=== PATIENT | female | born 1950 | race Two or more races ===

== ENCOUNTER 2021-09-21 15:25 | Emergency (ER) | payer OTHER, MEDICAID ==
[~2021-09-21] VITALS: Ht 160 cm; Wt 77.1 kg
[2021-09-21 16:16] LABS: Basophils # (auto) 0.1 10 ^3/uL (0-0.2); Basophils % (auto) 0.7 % (0.0-2.0); Eosinophils # (auto) 0.1 10 ^3/uL (0-0.8); Eosinophils % (auto) 1.6 % (0.0-7.0); Hemoglobin 13.9 g/dL (12.2-16.2); Lymphocytes # (auto) 2.1 10 ^3/uL (0.4-5.4); Mean Corpuscular Hemoglobin 30.9 pg (28.0-32.0); Mean Corpuscular Hgb Conc. 33.9 g/dL (32.0-36.0); Mean Corpuscular Volume 91.2 fL (80.0-100.0); Monocytes # (auto) 0.5 10 ^3/uL (0-1.3); Monocytes % (auto) 5.9 % (0.0-12.0); Neutrophils # (auto) 5.3 10 ^3/uL (1.6-8.6); Neutrophils % (auto) 65.8 % (37.0-80.0); Nucleated Red Blood Cells % 0.1 %; Red Blood Cells 4.49 10^6/uL (4.0-5.20); Red Cell Distribution Width 12.7 % (11.8-14.3); White Blood Cell 8.1 10^3/uL (4.4-10.8)
[2021-09-21 16:34] LABS: Albumin 3.3 g/dL (3.4-5.0); Anion Gap 4 (5-15); Blood Urea Nitrogen 16 mg/dL (7-18); Calcium 9.2 mg/dL (8.5-10.1); Carbon Dioxide 31 mmol/L (21-32); Chloride 97 mmol/L (98-107); Glucose 135 mg/dL (74-106); Potassium 4.2 mmol/L (3.5-5.1); Sodium 132 mmol/L (136-145)
[2021-09-21 16:39] LABS: Alanine Aminotransferase 21 U/L (13-56); Alkaline Phosphatase 106 U/L (45-117); Aspartate Aminotransferase 15 U/L (15-37); BUN/Creatinine Ratio 16.7; Bilirubin, Total 0.3 mg/dL (0.2-1.0); GFR African American 73 mL/min; GFR Non-African American 61 mL/min; Total Protein 7.9 g/dL (6.4-8.2)
[2021-09-21] MEDS ORDERED: ASPirin 325 MG TAB PO ONE (22:15)
[2021-09-21] MEDS ORDERED: LORazepam 0.5 MG TAB PO ONE (22:15)
[2021-09-21 22:44] LABS: Urine Bacteria FEW /hpf (None Seen); Urine Blood TRACE /uL (Negative); Urine Specific Gravity 1.008 (1.001-1.035); Urine WBC 2 /hpf (0 - 5)
[2021-09-21 22:46] LABS: Magnesium 2.2 mg/dL (1.6-2.6)
[2021-09-21] MEDS ORDERED: NITR-87 PO (22:52)
[2021-09-21] MEDS ORDERED: LABETALOL HCL 5 MG/ML 4ML SYRINGE IV ONE (23:00)
[2021-09-22] VITALS: BP 151/64
== END 2021-09-22 00:38 | disposition home or self-care (01) ==
LOC: ER 15:25
DX: R51.9 Headache, unspecified (principal); F41.0 Panic disorder [episodic paroxysmal anxiety]; N39.0 Urinary tract infection, site not specified; I10 Essential (primary) hypertension; Z87.891 Personal history of nicotine dependence
CPT/HCPCS: 36415; 70450; 71045; 80053; 81001; 83735; 84484; 85025; 93005

== ENCOUNTER 2023-12-17 16:55 | Emergency (ER) | payer OTHER, MEDICAID ==
[~2023-12-17] VITALS: Ht 157.5 cm; Wt 78.1 kg
[~2023-12-17 16:55] MED LIST: NITR-87 PO
[2023-12-17 18:18] VITALS: PULSE 61; RESP 16; O2SAT 98
[2023-12-17 19:16] LABS: Basophils # (auto) 0.1 10 ^3/uL (0-0.2); Basophils % (auto) 0.8 % (0.0-2.0); Eosinophils # (auto) 0.2 10 ^3/uL (0-0.8); Eosinophils % (auto) 1.9 % (0.0-7.0); Hematocrit 37.3 % (36.0-46.0); Hemoglobin 12.8 g/dL (12.2-16.2); Lymphocytes # (auto) 2.5 10 ^3/uL (0.4-5.4); Lymphocytes % (auto) 27.4 % (10.0-50.0); Mean Corpuscular Hemoglobin 31.7 pg (28.0-32.0); Mean Corpuscular Hgb Conc. 34.2 g/dL (32.0-36.0); Mean Corpuscular Volume 92.5 fL (80.0-100.0); Monocytes # (auto) 0.6 10 ^3/uL (0-1.3); Monocytes % (auto) 6.6 % (0.0-12.0); Neutrophils # (auto) 5.8 10 ^3/uL (1.6-8.6); Neutrophils % (auto) 63.3 % (37.0-80.0); Nucleated Red Blood Cells % 0.1 %; Red Blood Cells 4.03 10^6/uL (4.0-5.20); Red Cell Distribution Width 12.6 % (11.8-14.3); White Blood Cell 9.2 10^3/uL (4.4-10.8)
[2023-12-17 19:26] LABS: Chloride 94 mmol/L (98-107); Potassium 3.6 mmol/L (3.5-5.1); Sodium 125 mmol/L (136-145)
[2023-12-17 19:27] LABS: Anion Gap 6 (5-15); Carbon Dioxide 25 mmol/L (20-30)
[2023-12-17 19:28] LABS: Calcium 10.1 mg/dL (8.7-10.4)
[2023-12-17 19:32] LABS: BUN/Creatinine Ratio 23.8 (10.0-20.0); Blood Urea Nitrogen 15 mg/dL (9-23); Glucose 93 mg/dL (74-106)
[2023-12-17 20:11] LABS: Urine Bacteria None Seen /hpf (None Seen); Urine WBC None Seen /hpf (0 - 5)
[2023-12-17 20:27] LABS: Urine Blood Negative /uL (Negative); Urine Clarity Clear (Clear); Urine Color Colorless (Yellow); Urine Protein, UAD Negative (Negative); Urine Specific Gravity 1.003 (1.001-1.035); Urine Urobilinogen Normal (Negative)
[2023-12-17 23:00] VITALS: BP 139/65; PULSE 66; RESP 17; TEMP 97.6; O2SAT 95
== END 2023-12-17 23:40 | disposition home or self-care (01) ==
LOC: ER 16:55
DX: I10 Essential (primary) hypertension (principal); R42 Dizziness and giddiness; E11.9 Type 2 diabetes mellitus without complications; E78.5 Hyperlipidemia, unspecified; Z90.49 Acquired absence of other specified parts of digestive tract
CPT/HCPCS: 36415; 70450; 80048; 81001; 82962; 84484; 85025; 93005

== ENCOUNTER 2024-05-05 01:03 | Inpatient (IN) | payer OTHER, MEDICAID ==
[2024-05-05] VITALS (7 sets, daily range): BP systolic 140–154; BP diastolic 60–76; PULSE 63–91; RESP 16–18; TEMP 97.4–97.8; O2SAT 91–99
[~2024-05-05] VITALS: Ht 149.9 cm; Wt 78.8 kg
--- NOTE | 2024-05-05 01:25 | ECG ---
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
--- NOTE | 2024-05-05 01:32 | ED.PDOC ---
History of Present Illness HPI Comments 74-year-old female who came to ER for headaches. Patient does have history of hypertension, diabetes, migraine headaches. States for the past few hours she has been having intermittent episodes of left-sided headaches, pressure, nonradiating, non provoked associated with photophobia and nausea. No meds take n. Blood pressure upon arrival was 214/103 mm Hg. 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 OPERATIONS MANAGER Hx Family History Family History: Reviewed,noncontributory to illness Social History Smoker: Non-Smoker Alcohol: Denies ETOH Use Drugs: Denies Drug Use Lives In: Home Constitutional: denies: chills, diaphoresis, fatigue, fever, malaise, sweats, weakness, others EENTM: denies: blurred vision, double vision, ear bleeding, ear discharge, ear drainage, ear pain, ear ringing, eye pain, eye redness, hearing loss, mouth pain, mouth swelling, nasal discharge, nose bleeding, nose congestion, nose pain, photophobia, tearing, throat pain, throat swelling, voice changes, others Respiratory: denies: cough, hemoptysis, orthopnea, SOB at rest, shortness of breath, SOB with excertion, stridor, wheezing, others Cardiovascular: denies: chest pain, dizzy spells, diaphoresis, Dyspnea on exertion, edema, irregular heart beat, left arm pain, lightheadedness, palpitations, PND, syncope, others Gastrointestinal: reports: nausea; denies: abdomen distended, abdominal pain, blood streaked bowels, constipated, diarrhea, dysphagia, difficulty swallowing, hematemesis, melena, poor appetite, poor fluid intake, rectal bleeding, rectal pain, vomiting, others Genitourinary: denies: abnormal vagina bleeding, burning, dyspareunia, dysuria, flank pain, frequency, hematuria, incontinence, pain, , vagina discharge, urgency, others Neurological: reports: headache; denies: dizziness, fainting, left sided numbness, left sided weakness, numbness, paresthesia, pre-existing deficit, right sided numbness, right sided weakness, seizure, speech problems, tingling, tremors, weakness, others Musculoskeletal: denies: back pain, gout, joint pain, joint swelling, muscle pain, muscle stiffness, neck pain, others Integumetry: denies: bruises, change in color, change in hair/nails, dryness, laceration, lesions, lumps, rash, wounds, others Allergic/Immunocompromised: denies: Difficulty Healing, Frequent Infections, Hives, Itching, others Hematologic/Lymphatic: denies: anemia, blood clots, easy bleeding, easy bruising, swollen glands, others Endocrine: denies: excessive hunger, excessive sweating, excessive thirst, excessive urination, flushing, intolerance to cold, intolerance to heat, unexplained weight gain, unexplained weight loss, others Psychiatric: denies: anxiety, bipolar disorder, depression, hopeless, panic disorder, schizophrenia, sleepless, suicidal, others Physical Exam General Appearance: No Apparent Distress, Normal HEENT: Normal ENT Inspection, Pharynx Normal, TMs Normal Neck: Full Range of Motion, Non-Tender, Normal, Normal Inspection Respiratory: Chest Non-Tender, Lungs Clear, No Accessory Muscle Use, No Respiratory Distress, Normal Breath Sounds Cardiovascular: No Edema, No JVD, No Murmur, No Gallop, Normal Peripheral Pulses, Regular Rate/Rhythm Breast Exam: Deferred Gastrointestinal: No Organomegaly, Non Tender, No Pulsatile Mass, Normal Bowel Sounds, Soft Genitalia: Deferred Pelvic: Deferred Rectal: Deferred Extremities: No calf tenderness, Normal capillary refill, Normal inspection, Normal range of motion, Non-tender, No pedal edema Musculoskeletal : Apperance: Normal Neurologic: Alert, child life specialist II-XII nml as Tested, No Motor Deficits, Normal Affect, Normal Mood, No Sensory Deficits Cerebellar Function: Normal Reflexes: Normal Skin: Dry, Normal Color, Warm Lymphatic: No Adenopathy Was a procedure done? Was a procedure done?: No Differential Dx Considerations may include: Anemia, electrolyte imbalance, migraine headaches, hypertensive urgency X-Ray, Labs, Meds, VS Vital Signs Date Time Temp Pulse Resp B/P (MAP) Pulse Ox O2 Delivery O2 Flow Rate FiO2 05/05/24 02:29 97.6 64 17 204/117 (146) 99 97.6 05/05/24 02:29 64 17 99 Room Air* 0 21 05/05/24 01:21 67 05/05/24 01:10 97.5 72 16 214/103 (140) 97 Lab Test 05/05/24 02:00 05/05/24 01:48 05/05/24 01:39 Range/Units Troponin I High Sensitivity < 3 L < 3 L </=34 ng/L Urine Color Straw Yellow Urine Clarity Clear Clear Urine pH 6.0 5.0-9.0 Urine Specific [place] 1.012 1.001-1.035 Urine Protein Negative Negative Urine Ketones Negative Negative Urine Blood Trace H Negative /uL Urine Nitrite Negative Negative Urine Bilirubin Negative Negative Urine Urobilinogen Normal Negative mg/dL Urine Leukocyte Esterase 1+ Negative /uL Urine RBC 3 0 - 4 /hpf Urine WBC 1 0 - 5 /hpf Urine Squamous Epithelial Cells Few <5 /hpf Urine Bacteria None seen None Seen /hpf Urine Glucose Normal Normal mg/dL White Blood Count 7.3 4.4-10.8 10^3/uL Red Blood Count 4.43 4.0-5.20 10^6/uL Hemoglobin 14.4 12.2-16.2 g/dL Hematocrit 41.6 36.0-46.0 % Mean Corpuscular Volume 93.8 80.0-100.0 fL Mean Corpuscular Hemoglobin 32.4 H 28.0-32.0 pg Mean Corpuscular Hemoglobin Concent 34.6 32.0-36.0 g/dL Red Cell Distribution Width 12.8 11.8-14.3 % Platelet Count 318 140-450 10^3/uL Mean Platelet Volume 7.3 6.9-10.8 fL Neutrophils (%) (Auto) 60.4 37.0-80.0 % Lymphocytes (%) (Auto) 31.0 10.0-50.0 % Monocytes (%) (Auto) 5.8 0.0-12.0 % Eosinophils (%) (Auto) 1.8 0.0-7.0 % Basophils (%) (Auto) 1.0 0.0-2.0 % Neutrophils # (Auto) 4.4 1.6-8.6 10 ^3/uL Lymphocytes # (Auto) 2.3 0.4-5.4 10 ^3/uL Monocytes # (Auto) 0.4 0-1.3 10 ^3/uL Eosinophils # (Auto) 0.1 0-0.8 10 ^3/uL Basophils # (Auto) 0.1 0-0.2 10 ^3/uL Nucleated Red Blood Cells 0.1 % Sodium Level 135 L 136-145 mmol/L Potassium Level 4.0 3.5-5.1 mmol/L Chloride Level 106 98-107 mmol/L Carbon Dioxide Level 26 20-31 mmol/L Anion Gap 3 L 5-15 Blood Urea Nitrogen 17 9-23 mg/dL Creatinine 0.76 0.550-1.02 mg/dL Glomerular Filtration Rate Calc 82 >90 mL/min BUN/Creatinine Ratio 22.4 H 10.0-20.0 Serum Glucose 143 H 74-106 mg/dL Calcium Level 10.5 H 8.7-10.4 mg/dL Current Medications Medications (Trade) Dose Ordered Sig/Nupur Route Start Time Stop Time Status Last Admin Acetaminophen (Tylenol Tablet) 650 mg ONCE ONCE PO 05/05/24 01:30 05/05/24 01:31 DC 05/05/24 01:56 Time of 1ST Reevaluation: 01:28 Reevaluation 1ST: Unchanged Patient Education/Counseling: Diagnosis, Treatment Family Education/Counseling: No Family Present Departure 1 Departure Time of Disposition: 03:00 (Patient presented with hypertension and symptoms concerning for hypertensive emergency. Patient is receiving iv blood pressure medications requiring intensive monitoring. Data: 1. I ordered and reviewed the result of at least 3 labs including a CBC, BMP, and Urinalysis. 2. I independently interpreted the following tests: CT Brain: Which appears benign. EKG which is Normal Sinus RhythmRisk:This patient has a high risk of morbidity due to further diagnostic testing or treatment and may suffer from an acute cardiac disorder. Workup reveals hypertensive emergency and patient should be admitted for further workup. and possible expert consultation. ) Impression: Primary Impression: Hypertensive urgency Additional Impression: Migraine Qualified Codes: G43.119 - Migraine with aura, intractable, without status migrainosus Disposition: ADMITTED INPATIENT Admit to: Med Surg Condition: Serious Critical Care Note Critical Care Time?: Yes (35 min-critical care time only) Critical care comment: Hypertensive urgency Authorized and Performed by: Rachell Carrion MD Total critical care time: Approximately 33 minutes Due to a high probability of clinically significant, life threatening deterioration, the patient required my highest level of preparedness to intervene emergently and I personally spent this critical care time directly and personally managing the patient. This critical care time included obtaining a history; examining the patient; pulse oximetry; ordering and review of studies; arranging urgent treatment with development of a management plan; evaluation of patient's response to treatment; frequent reassessment; and, discussions with other providers. This critical care time was performed to assess and manage the high probability of imminent, life-threatening deterioration that could result in multi-organ failure. It was exclusive of separately billable procedures and treating other patients and teaching time. Please see my other sections and the rest of the note for further information on patient assessment and treatment. Stability Stability form required: No Heart Score Heart Score: Heart Score Response (Comments) Value History Moderate Suspicious 1 EKG Normal 0 Age >65 2 Risk Factors >3 or Hx ASHD 2 Troponin Normal limit 0 Total 5 I personally scribed for RACHELL CARRION MD ([facility] on 05/05/24 at 01:32. Electronically submitted by Allen Shearer ([facility]). I personally scribed for RACHELL CARRION MD ([facility]) on 05/05/24 at 01:32. Electronically submitted by Allen Shearer ([employer]). I personally scribed for RACHELL CARRION MD ([facility]INA) on 05/05/24 at 01:48. Electronically submitted by Allen Shearer ([employer]). RACHELL CARRION MD May 05, 2024 01:32
[2024-05-05 01:49] LABS: Basophils # (auto) 0.1 10 ^3/uL (0-0.2); Eosinophils # (auto) 0.1 10 ^3/uL (0-0.8); Eosinophils % (auto) 1.8 % (0.0-7.0); Hematocrit 41.6 % (36.0-46.0); Hemoglobin 14.4 g/dL (12.2-16.2); Lymphocytes # (auto) 2.3 10 ^3/uL (0.4-5.4); Mean Corpuscular Hemoglobin 32.4 pg (28.0-32.0); Mean Corpuscular Hgb Conc. 34.6 g/dL (32.0-36.0); Mean Corpuscular Volume 93.8 fL (80.0-100.0); Monocytes # (auto) 0.4 10 ^3/uL (0-1.3); Monocytes % (auto) 5.8 % (0.0-12.0); Neutrophils # (auto) 4.4 10 ^3/uL (1.6-8.6); Neutrophils % (auto) 60.4 % (37.0-80.0); Nucleated Red Blood Cells % 0.1 %; Platelet Count (auto) 318 10^3/uL (140-450); Red Blood Cells 4.43 10^6/uL (4.0-5.20); Red Cell Distribution Width 12.8 % (11.8-14.3); White Blood Cell 7.3 10^3/uL (4.4-10.8)
[2024-05-05] MEDS: ACETAMINOPHEN 325 MG TAB PO ONE (01:56)
[2024-05-05 01:58] LABS: Chloride 106 mmol/L (98-107); Sodium 135 mmol/L (136-145)
[2024-05-05 01:59] LABS: Anion Gap 3 (5-15); Calcium 10.5 mg/dL (8.7-10.4); Carbon Dioxide 26 mmol/L (20-31)
[2024-05-05 02:04] LABS: BUN/Creatinine Ratio 22.4 (10.0-20.0); Blood Urea Nitrogen 17 mg/dL (9-23); Glucose 143 mg/dL (74-106)
[2024-05-05 02:06] LABS: Urine Bacteria None Seen /hpf (None Seen)
[2024-05-05 02:34] LABS: Urine Blood TRACE /uL (Negative); Urine Clarity Clear (Clear); Urine Protein, UAD Negative (Negative); Urine Specific Gravity 1.012 (1.001-1.035); Urine Urobilinogen Normal (Negative); Urine WBC 1 /hpf (0 - 5)
[2024-05-05 02:37] LABS: Urine Color STRAW (Yellow)
--- NOTE | 2024-05-05 02:42 | DVH ---
Examination: CXRP Clinical Indication: HTN urgency Comparison: None. Technique: Frontal radiograph of the chest was obtained. Findings: Patient is in slight rotation. Lungs are clear and well expanded with no pulmonary infiltrate or pleural effusion. There is no pneumothorax. The cardiomediastinal silhouette is within normal limits. No acute osseous abnormality is seen. Impression: No acute cardiopulmonary disease is seen. Electronically Signed 05/05/2024 02:33 Melissa Shell
--- NOTE | 2024-05-05 02:43 | DVH ---
Examination: HWOCT CLINICAL INDICATION: ;HTN urgency DIREAS;Reason for Exam: Wheelchair;Wheelchair;Modes of Transportation DITRANS;How is pat ient transported?. COMPARISON: None. CONTRAST USED: None. TECHNIQUE: The examination was performed obtaining 4 mm slices without contrast. CT scan was done ac cording to ALARA (As Low as Reasonably Achievable). Multiplanar reconstructions were obtained. This CT scan was performed using dose optimization techniques as appropriate to the performed exam includ ing one or more of the following: automated exposure control, adjustment of the kV and/or mA accordin g to patient size, use of iterative reconstruction technique. FINDINGS: SUPRATENTORIAL BRAIN: Cerebral Hemispheres: There is no midline shift or mass effect, intra or extra-axial fluid collectio ns or hemorrhage. Diffuse white matter hypodensity in the subcortical, deep, periventricular white matter of the cerebr um on either side with castorena radiata and centrum semiovale involvement, which although non-specific, likely relates to small vessel ischemic disease. Prominent sulcal - gyral pattern and cisternal spaces in both cerebral hemispheres suggestive of cere bral atrophy, likely age-related. Basal Ganglia: No abnormal areas of altered attenuation within the basal ganglia. POSTERIOR FOSSA: The brainstem is unremarkable. Prominent cerebellar folia suggestive of cerebellar atrophy, likely age-related. VENTRICULAR SYSTEM: The ventricular system is normal in size. There is no evidence of hydrocephalus or transependymal flow of cerebrospinal fluid. SKULL BASE AND PARASELLAR REGION: The skull base is normal with no parasellar masses or abnormalitie s identified. CALVARIUM AND SCALP REGION: No abnormality is seen. PARANASAL SINUSES: Partly visualized mucous retention cyst in the visualized right maxillary sinus. No significant inflammatory changes are identified in the visualized paranasal sinuses. IMPRESSION: 1. No evidence of acute large vessel territorial ischemic infarction or intraparenchymal hematoma in current study. 2. Chronic small vessel ischemic changes. 3. Cerebral and cerebellar atrophy, likely age-related. 4. Chronic and/or ancillary findings as described above. 5. Advised further evaluation with MRI brain without contrast if clinically indicated. Electronically Signed 05/05/2024 02:34 Melissa Shell
[2024-05-05] MEDS: METOCLOPRAMIDE HCL 5MG/ml INJ 2ml VIAL IV ONE (03:05)
[2024-05-05] MEDS: SODIUM CHLORIDE 0.9% 1,000 ML IV ONE (03:05)
[2024-05-05] MEDS: hydrALAZINE HCL 20 MG/ML VL IV ONE (03:07)
[2024-05-05] MEDS: KETOROLAC TROMETH 30 MG/ML 1ML VIAL IV ONE (04:12)
[2024-05-05] MEDS ORDERED: ONDANSETRON HCL 4 MG/2 ML VIAL IV PRN (10:15)
[2024-05-05] MEDS ORDERED: TEMAZEPAM 15 MG CAP PO PRN (10:15)
[2024-05-05] MEDS ORDERED: DOCUSATE SOD 100 MG CAP PO PRN (10:15)
[2024-05-05] MEDS ORDERED: LORazepam 0.5 MG TAB PO PRN (10:15)
[2024-05-05] MEDS ORDERED: MAALOX PLUS or MAALOX 30 ML PO PRN (10:15)
[2024-05-05] MEDS: PROPRANOLOL HCL 20 MG TAB PO SCH (10:46)
--- NOTE | 2024-05-05 11:08 | DVHHP2 ---
History of Present Illness Reason for Visit: Headaches History of Present Illness 74 yo female with acute headaches and weakness was having complaints of headaches for past day patient takes medications for blood pressure but appears to take them only as needed and came in with extreme hypertensive urgency currently patient headaches have improved but was recommended for evaluation and monitoring prior to discharge Cardiovascular: HTN RN SECURITY: Migraine Endocrine: Diabetes Review of Systems Constitutional: No: Fever, Chills, Sweats, Weakness, Malaise, Other Eyes: Vision change; No: Pain, Conjunctivae inflammation, Eyelid inflammation, Other, Redness ENT: No: Ear pain, Ear discharge, Nose pain, Nose discharge, Nose congestion, Mouth pain, Mouth swelling, Throat pain, Throat swelling, Other Respiratory: No: Cough, Dry, Shortness of breath, SOB with excertion, Wheezing, Hemoptysis, Pleuritic Pain, Sputum, Wheezing, Other Cardiovascular: No: Chest Pain, Palpitations, Orthopnea, Paroxysmal Noc. Dyspnea, Edema, Lt Headedness, Other Gastrointestinal: No: Nausea, Vomiting, Abdominal Pain, Diarrhea, Constipation, Melena, Hematochezia, Other Genitourinary: No Dysuria, No Frequency, No Incontinence, No Hematuria, No Retention, No Other Musculoskeletal: No: other, neck pain, shoulder pain, arm pain, back pain, hand pain, leg pain, foot pain Skin: No: Rash, Lesions, Jaundice, Bruising, Other Neurological: Other (migraines ); No: Weakness, Numbness, Incoordination, Change in speech, Confusion, Seizures Allergies: Coded Allergies: NO KNOWN ALLERGIES (Unverified , 01/30/15) Medications Current Medications Medications Dose Ordered Sig/Nupur Route Start Time Stop Time Status Last Admin Dose Admin Hydralazine HCl 25 mg Q8HR PO 05/05/24 14:00 Propranolol HCl 20 mg BID PO 05/05/24 10:15 Lorazepam 0.5 mg Q6HP PRN PO 05/05/24 10:15 Al Hydrox/Mg Hydrox/Simethicone 30 ml Q6HP PRN PO 05/05/24 10:15 Docusate Sodium 100 mg BIDPRN PRN PO 05/05/24 10:15 Acetaminophen 650 mg Q6HP PRN PO 05/05/24 10:15 Temazepam 15 mg QHSP PRN PO 05/05/24 10:15 Ondansetron HCl 4 mg Q4HP PRN IV 05/05/24 10:15 Exam Vital Signs Vital Signs Date Time Temp Pulse Resp B/P (MAP) Pulse Ox O2 Delivery O2 Flow Rate FiO2 05/05/24 10:46 108/46 05/05/24 09:11 85 16 95 Room Air* 0 21 05/05/24 09:00 98.3 98.3 General Appearance: Alert, Oriented X3 HEENT: Atraumatic, PERRLA Respiratory: Clear to auscultation, Normal air movement Cardiovascular: Regular rate, Normal S1, Normal S2 Abdominal: Normal bowel sounds, Soft Extremities: No clubbing, No cyanosis Skin: No rashes, No breakdown Neuro: Normal gait, Normal speech Labs/Xrays Labs Test 05/05/24 02:00 05/05/24 01:48 05/05/24 01:39 Range/Units Troponin I High Sensitivity < 3 L </=34 ng/L Urine Color Straw Yellow Urine Clarity Clear Clear Urine pH 6.0 5.0-9.0 Urine Specific [place] 1.012 1.001-1.035 Urine Protein Negative Negative Urine Ketones Negative Negative Urine Blood Trace H Negative /uL Urine Nitrite Negative Negative Urine Bilirubin Negative Negative Urine Urobilinogen Normal Negative mg/dL Urine Leukocyte Esterase 1+ Negative /uL Urine RBC 3 0 - 4 /hpf Urine WBC 1 0 - 5 /hpf Urine Squamous Epithelial Cells Few <5 /hpf Urine Bacteria None seen None Seen /hpf Urine Glucose Normal Normal mg/dL White Blood Count 7.3 4.4-10.8 10^3/uL Red Blood Count 4.43 4.0-5.20 10^6/uL Hemoglobin 14.4 12.2-16.2 g/dL Hematocrit 41.6 36.0-46.0 % Mean Corpuscular Volume 93.8 80.0-100.0 fL Mean Corpuscular Hemoglobin 32.4 H 28.0-32.0 pg Mean Corpuscular Hemoglobin Concent 34.6 32.0-36.0 g/dL Red Cell Distribution Width 12.8 11.8-14.3 % Platelet Count 318 140-450 10^3/uL Mean Platelet Volume 7.3 6.9-10.8 fL Neutrophils (%) (Auto) 60.4 37.0-80.0 % Lymphocytes (%) (Auto) 31.0 10.0-50.0 % Monocytes (%) (Auto) 5.8 0.0-12.0 % Eosinophils (%) (Auto) 1.8 0.0-7.0 % Basophils (%) (Auto) 1.0 0.0-2.0 % Neutrophils # (Auto) 4.4 1.6-8.6 10 ^3/uL Lymphocytes # (Auto) 2.3 0.4-5.4 10 ^3/uL Monocytes # (Auto) 0.4 0-1.3 10 ^3/uL Eosinophils # (Auto) 0.1 0-0.8 10 ^3/uL Basophils # (Auto) 0.1 0-0.2 10 ^3/uL Nucleated Red Blood Cells 0.1 % Sodium Level 135 L 136-145 mmol/L Potassium Level 4.0 3.5-5.1 mmol/L Chloride Level 106 98-107 mmol/L Carbon Dioxide Level 26 20-31 mmol/L Anion Gap 3 L 5-15 Blood Urea Nitrogen 17 9-23 mg/dL Creatinine 0.76 0.550-1.02 mg/dL Glomerular Filtration Rate Calc 82 >90 mL/min BUN/Creatinine Ratio 22.4 H 10.0-20.0 Serum Glucose 143 H 74-106 mg/dL Calcium Level 10.5 H 8.7-10.4 mg/dL Assessment/Plan Assessment/Plan Admit Med/surge Migraines Headaches in setting Hypertensive urgency PRN blood pressure meds in patient propranolol prn meds for pain headache relieved monitoring for continued rebound hypertensive urgency CT scan no acute signs of stroke or bleeds chronic changes noted DM c/w home meds sliding scale as required Plan discussed with: Patient My Orders Orders - MAHIN CARTER MD Procedure Category Date Status Time Hydralazine Hcl PHA 05/05/24 In Process Tablet (Apresoline 14:00 Propranolol Hcl PHA 05/05/24 In Process Tablet (Inderal 10:15 Admit ADMIT 05/05/24 Transmitted 10:02 Code Status CODE 05/05/24 Transmitted 10:02 Vital Signs AASHISH 05/05/24 In Process 10:02 Review Orders With AASHISH 05/05/24 In Process Adm. 10:02 Regular Diet DIET 05/05/24 Transmitted Lunch Lorazepam Tablet PHA 05/05/24 In Process (Ativan Tablet) 10:15 Alum & Mag PHA 05/05/24 In Process Hydrox-Simethicone 10:15 Docusate Sodium PHA 05/05/24 In Process Capsule (Colace 10:15 Acetaminophen Tablet PHA 05/05/24 In Process (Tylenol Tablet) 10:15 Temazepam (Restoril) PHA 05/05/24 In Process 10:15 Notify Md Of Changes [facility] 05/05/24 In Process From Base 10:02 Advance Directive [facility] 05/05/24 In Process 10:02 Basic Metabolic Panel LAB 05/06/24 Verified 04:00 Complete Blood Count LAB 05/06/24 Verified 04:00 Patient Condition ORDERS 05/05/24 Transmitted 10:02 Allergies [facility] 05/05/24 In Process 10:[address] [facility] 05/05/24 In Process (Zofran) 10:15 Notify Md Of Changes [facility] 05/05/24 In Process From Base 10:02 Therapy Assistant For [facility] 05/05/24 In Process 24 Hours 10:02 Emergency Dysrhythmia [facility] 05/05/24 In Process Protocol 10:02 Rhythm Strips Once [facility] 05/05/24 In Process Every Shift 10:02 Oxygen By Nasal RT 05/05/24 Transmitted Cannula 10:02 Problem List: (1) Vomiting (2) Headache (3) Migraine (4) Hypertensive urgency (5) Poorly-controlled hypertension (6) Dizziness Date of Service: May 05, 2024 Billing Provider: MAHIN CARTER MD Common Visit Codes: [id number] INP/OBS CARE (HIGH) MAHIN CARTER MD May 05, 2024 11:08
[2024-05-05] MEDS: hydrALAZINE HCL 25 MG TAB PO SCH (14:15)
[2024-05-05] MEDS: ACETAMINOPHEN 325 MG TAB PO PRN (21:51)
[2024-05-06 01:00] VITALS: BP 129/46; PULSE 53; RESP 17; TEMP 97.1; O2SAT 97
[2024-05-06 05:00] VITALS: BP 117/55; PULSE 52; RESP 18; TEMP 97.2; O2SAT 96
[2024-05-06 06:16] LABS: Basophils # (auto) 0.1 10 ^3/uL (0-0.2); Basophils % (auto) 0.8 % (0.0-2.0); Eosinophils # (auto) 0.1 10 ^3/uL (0-0.8); Eosinophils % (auto) 1.7 % (0.0-7.0); Hematocrit 39.3 % (36.0-46.0); Hemoglobin 13.2 g/dL (12.2-16.2); Lymphocytes # (auto) 2.3 10 ^3/uL (0.4-5.4); Lymphocytes % (auto) 34.2 % (10.0-50.0); Mean Corpuscular Hemoglobin 31.8 pg (28.0-32.0); Mean Corpuscular Hgb Conc. 33.6 g/dL (32.0-36.0); Mean Corpuscular Volume 94.8 fL (80.0-100.0); Monocytes # (auto) 0.6 10 ^3/uL (0-1.3); Monocytes % (auto) 8.1 % (0.0-12.0); Neutrophils # (auto) 3.8 10 ^3/uL (1.6-8.6); Neutrophils % (auto) 55.2 % (37.0-80.0); Nucleated Red Blood Cells % 0.1 %; Platelet Count (auto) 315 10^3/uL (140-450); Red Blood Cells 4.15 10^6/uL (4.0-5.20); Red Cell Distribution Width 12.7 % (11.8-14.3); White Blood Cell 6.8 10^3/uL (4.4-10.8)
[2024-05-06 06:32] LABS: Anion Gap 7 (5-15); Carbon Dioxide 24 mmol/L (20-31); Chloride 110 mmol/L (98-107); Potassium 4.5 mmol/L (3.5-5.1); Sodium 141 mmol/L (136-145)
[2024-05-06 06:33] LABS: Calcium 9.5 mg/dL (8.7-10.4)
[2024-05-06 06:37] LABS: Glucose 106 mg/dL (74-106)
[2024-05-06 06:38] LABS: BUN/Creatinine Ratio 16.9 (10.0-20.0); Blood Urea Nitrogen 13 mg/dL (9-23)
[2024-05-06 08:00] VITALS: BP 128/63; PULSE 111; PULSE 53; RESP 18; TEMP 97.2; O2SAT 96
[2024-05-06] MEDS ORDERED: LOSA-534 PO (09:46)
--- NOTE | 2024-05-06 09:46 | DVHDS2 ---
Discharge Summary Date of Admission May 05, 2024 at 10:02 Date of Discharge: May 06, 2024 Admitting Diagnosis Hypertensive crisis Labs/Diagnostic Data: Laboratory Results Test 05/06/24 04:48 05/05/24 02:00 05/05/24 01:48 White Blood Count 6.8 10^3/uL (4.4-10.8) Red Blood Count 4.15 10^6/uL (4.0-5.20) Hemoglobin 13.2 g/dL (12.2-16.2) Hematocrit 39.3 % (36.0-46.0) Mean Corpuscular Volume 94.8 fL (80.0-100.0) Mean Corpuscular Hemoglobin 31.8 pg (28.0-32.0) Mean Corpuscular Hemoglobin Concent 33.6 g/dL (32.0-36.0) Red Cell Distribution Width 12.7 % (11.8-14.3) Platelet Count 315 10^3/uL (140-450) Mean Platelet Volume 7.8 fL (6.9-10.8) Neutrophils (%) (Auto) 55.2 % (37.0-80.0) Lymphocytes (%) (Auto) 34.2 % (10.0-50.0) Monocytes (%) (Auto) 8.1 % (0.0-12.0) Eosinophils (%) (Auto) 1.7 % (0.0-7.0) Basophils (%) (Auto) 0.8 % (0.0-2.0) Neutrophils # (Auto) 3.8 10 ^3/uL (1.6-8.6) Lymphocytes # (Auto) 2.3 10 ^3/uL (0.4-5.4) Monocytes # (Auto) 0.6 10 ^3/uL (0-1.3) Eosinophils # (Auto) 0.1 10 ^3/uL (0-0.8) Basophils # (Auto) 0.1 10 ^3/uL (0-0.2) Nucleated Red Blood Cells 0.1 % Sodium Level 141 mmol/L (136-145) Potassium Level 4.5 mmol/L (3.5-5.1) Chloride Level 110 mmol/L (98-107) Carbon Dioxide Level 24 mmol/L (20-31) Anion Gap 7 (5-15) Blood Urea Nitrogen 13 mg/dL (9-23) Creatinine 0.77 mg/dL (0.550-1.02) Glomerular Filtration Rate Calc 80 mL/min (>90) BUN/Creatinine Ratio 16.9 (10.0-20.0) Serum Glucose 106 mg/dL (74-106) Calcium Level 9.5 mg/dL (8.7-10.4) Troponin I High Sensitivity < 3 ng/L (</=34) Urine Color Straw (Yellow) Urine Clarity Clear (Clear) Urine pH 6.0 (5.0-9.0) Urine Specific [place] 1.012 (1.001-1.035) Urine Protein Negative (Negative) Urine Ketones Negative (Negative) Urine Blood Trace /uL (Negative) Urine Nitrite Negative (Negative) Urine Bilirubin Negative (Negative) Urine Urobilinogen Normal mg/dL (Negative) Urine Leukocyte Esterase 1+ /uL (Negative) Urine RBC 3 /hpf (0 - 4) Urine WBC 1 /hpf (0 - 5) Urine Squamous Epithelial Cells Few /hpf (<5) Urine Bacteria None seen /hpf (None Seen) Urine Glucose Normal mg/dL (Normal) Other Laboratory Tests 05/06/24 04:48 Brief Hx & Hospital Course: History of Present Illness 74 yo female with acute headaches and weakness was having complaints of headaches for past day patient takes medications for blood pressure but appears to take them only as needed and came in with extreme hypertensive urgency currently patient headaches have improved but was recommended for evaluation and monitoring prior to discharge. Course of hospitalization: Patient was started on propranolol and hydralazine p.o. , which relieved the patient's hypertension as well as her headache. Patient has been asymptomatic overnight. Patient's blood pressure has been improved. Patient is requesting to be discharged home. She was instructed to follow up with her PCP in 1-2 weeks. She will continue with all previous home medications, in addition to increasing her losartan 50 mg p.o. daily. Physical exam General: Alert and Oriented x3. No acute distress. Well-nourished. Eyes: EOMI. Anicteric. HENT: Moist mucous membranes. Lungs: Clear to auscultation bilaterally. No accessory muscle use. Cardiovascular: Regular rate and rhythm. No murmur. No JVD. Abdomen: Soft, non-tender and non-distended. No palpable masses. Extremities: No edema. Non-tender. Skin: No rashes or lesions. Warm. Neurologic: No focal neurological deficits. CN II-XII grossly intact, but not individually tested. Psychiatric: Cooperative. Appropriate mood and affect. Total time spent with patient discussing and formulating plan of care: 35 minutes. This medical document was created using an electronic medical record system with [employer] dictation system. Although this document has been carefully reviewed, there may still be some phonetic and typographical errors. These areas are purely typographical due to imperfections of the software programs, and do not reflect any compromise in the patient's medical care. Condition at Discharge: Fair Final Diagnosis/Problems List Hypertensive crisis Secondary Diagnosis: Migraine headache Diabetes mellitus Obesity Discharge Disposition: Home Discharge Instruct/Medications Diet: Cardiac 2g Na,low cholest Activity: No Restrictions, As Tolerated Follow Up/Referral: Follow up PCP in 1-2 weeks Medications: Increase losartan to 50 mg p.o. daily 36 Discharge Statement: "Patient was advised to return to the ER or call 911 if any headaches, dizziness, shortness of breath, chest pain, abdominal pain, bleeding, fevers, or worsening of medical condition. Patient was counseled about treatment plan, medications, possible side effects, patientverbalized understanding. All questions were answered to the best of my ability. This discharge took greater then 30 minutes in planning, reviewing documentation, counseling the patient, and discussing with other team members." ASSESSMENT ASSESSMENT Assessment Hypertensive crisis Date of Service: May 06, 2024 Billing Provider: STEVE COLLINS NP Common Visit Codes: 74188-NPC/OBS DISCH DAY >30min STEVE COLLINS NP May 06, 2024 09:45
[2024-05-06] MEDS ORDERED: LOS25T PO (09:50)
[2024-05-06] MEDS: LOSARTAN POTASSIUM 25 MG TAB PO SCH (09:55)
== END 2024-05-06 11:30 | disposition home or self-care (01) | DRG 103 ==
LOC: EDUNIT# 01:03 → ER 01:03 → TELE 10:02 → TELE-CENTR 14:45
PROVIDERS: ADMIT Hospitalist; ATTEND Nurse Practitioner Acute Care
DX: G43.909 Migraine, unspecified, not intractable, without status migrainosus (principal); I16.0 Hypertensive urgency; E66.9 Obesity, unspecified; E11.9 Type 2 diabetes mellitus without complications; Z90.49 Acquired absence of other specified parts of digestive tract; Z79.899 Other long term (current) drug therapy; Z68.34 Body mass index [BMI] 34.0-34.9, adult
CPT/HCPCS: 36415; 70450; 71045; 80048; 81001; 83036; 84484; 85025; 93005; 99291; G0378; J1885

== ENCOUNTER 2025-06-07 10:06 | Emergency (ER) | payer OTHER, MEDICAID ==
[~2025-06-07] VITALS: Ht 154.9 cm; Wt 76.1 kg
[~2025-06-07 10:06] MED LIST changes: +LOS25T PO; +LOSA-534 PO; -NITR-87 PO
--- NOTE | 2025-06-07 11:16 | ED.PDOC ---
Back pain HPI HPI Comments 75 y.o female presents to the ED for a chief complaint of right lower rib associated with dizziness and a cough x 2 weeks. Patient reports pain is dull, always constant but states when moving her right arm, pain worsens and radiates to her back. Patient denies any recent falls, trauma, fever, chills, vomiting. Chief Complaint: Abdominal Pain Time Seen by MD: 10:56 Primary Care Provider: unknown Reviewed Notes: Nurses Notes, Medications, Allergies Allergies: Coded Allergies: NO KNOWN ALLERGIES (Unverified , 01/30/15) Home Meds Active Scripts Losartan Potassium (Losartan Potassium) 50 Mg Tab, 1 TAB PO DAILY, #30 TAB 2 Refills Prov:STEVE COLLINS [employer] MACHINIST 05/06/24 Reported Medications Losartan Potassium (Losartan Potassium) 25 Mg Tab, 1 TAB PO DAILY 05/06/24 Information Source: Patient Mode of Arrival: Ambulatory Timing: Weeks (2) Duration: Since onset Location of Back pain: (B) Lumbar Severity: Moderate Quality: Aching, Sharp Onset: Spontaneous Past Medical History PAST MEDICAL HISTORY: DM, HTN 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, 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 Hx Family History Family History: Reviewed,noncontributory to illness Social History Smoker: Non-Smoker Alcohol: Denies ETOH Use Drugs: Denies Drug Use Lives In: Home Constitutional: denies: chills, diaphoresis, fatigue, fever, malaise, sweats, weakness, others EENTM: denies: blurred vision, double vision, ear bleeding, ear discharge, ear drainage, ear pain, ear ringing, eye pain, eye redness, hearing loss, mouth pain, mouth swelling, nasal discharge, nose bleeding, nose congestion, nose pain, photophobia, tearing, throat pain, throat swelling, voice changes, others Respiratory: reports: cough; denies: hemoptysis, orthopnea, SOB at rest, shortness of breath, SOB with excertion, stridor, wheezing, others Cardiovascular: denies: chest pain, dizzy spells, diaphoresis, Dyspnea on exertion, edema, irregular heart beat, left arm pain, lightheadedness, palpitations, PND, syncope, others Gastrointestinal: denies: abdomen distended, abdominal pain, blood streaked bowels, constipated, diarrhea, dysphagia, difficulty swallowing, hematemesis, melena, nausea, poor appetite, poor fluid intake, rectal bleeding, rectal pain, vomiting, others Genitourinary: denies: abnormal vagina bleeding, burning, dyspareunia, dysuria, flank pain, frequency, hematuria, incontinence, pain, , vagina discharge, urgency, others Neurological: reports: dizziness; denies: fainting, headache, left sided numbness, left sided weakness, numbness, paresthesia, pre-existing deficit, right sided numbness, right sided weakness, seizure, speech problems, tingling, tremors, weakness, others Musculoskeletal: reports: others (right rib pain ); denies: back pain, gout, joint pain, joint swelling, muscle pain, muscle stiffness, neck pain Integumetry: denies: bruises, change in color, change in hair/nails, dryness, laceration, lesions, lumps, rash, wounds, others Allergic/Immunocompromised: denies: Difficulty Healing, Frequent Infections, Hives, Itching, others Hematologic/Lymphatic: denies: anemia, blood clots, easy bleeding, easy bruising, swollen glands, others Endocrine: denies: excessive hunger, excessive sweating, excessive thirst, excessive urination, flushing, intolerance to cold, intolerance to heat, unexplained weight gain, unexplained weight loss, others Psychiatric: denies: anxiety, bipolar disorder, depression, hopeless, panic disorder, schizophrenia, sleepless, suicidal, others All Other Systems: Reviewed and Negative Physical Exam General Appearance: No Apparent Distress, Normal HEENT: Normal ENT Inspection, Pharynx Normal, TMs Normal Neck: Full Range of Motion, Non-Tender, Normal, Normal Inspection Respiratory: Chest Non-Tender, Lungs Clear, No Accessory Muscle Use, No Respiratory Distress, Normal Breath Sounds Cardiovascular: No Edema, No JVD, No Murmur, No Gallop, Normal Peripheral Pulses, Regular Rate/Rhythm Breast Exam: Deferred Gastrointestinal: No Organomegaly, Non Tender, No Pulsatile Mass, Normal Bowel Sounds, Soft Genitalia: Deferred Pelvic: Deferred Rectal: Deferred Extremities: No calf tenderness, Normal capillary refill, Normal inspection, Normal range of motion, Non-tender, No pedal edema Musculoskeletal : Apperance: Normal Neurologic: Alert, 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 Was a procedure done?: No Back Pain Differential Dx Differential Diagnosis: DJD, Fracture, Musculoskeletal Pain, Pancreatits, Pyelonephritis, Strain X-Ray, Labs, Meds, VS Vital Signs Date Time Temp Pulse Resp B/P (MAP) Pulse Ox O2 Delivery O2 Flow Rate FiO2 06/07/25 11:59 97.4 65 16 146/80 (102) 99 97.4 06/07/25 10:32 67 06/07/25 10:24 97.9 96 68 144/82 17 97.9 Lab Test 06/07/25 12:38 06/07/25 11:33 Range/Units Troponin I High Sensitivity 3 L 3 L </=34 ng/L White Blood Count 8.1 4.4-10.8 10^3/uL Red Blood Count 4.62 4.0-5.20 10^6/uL Hemoglobin 14.4 12.2-16.2 g/dL Hematocrit 42.5 36.0-46.0 % Mean Corpuscular Volume 92.0 80.0-100.0 fL Mean Corpuscular Hemoglobin 31.1 28.0-32.0 pg Mean Corpuscular Hemoglobin Concent 33.8 32.0-36.0 g/dL Red Cell Distribution Width 12.7 11.8-14.3 % Platelet Count 347 140-450 10^3/uL Mean Platelet Volume 7.4 6.9-10.8 fL Neutrophils (%) (Auto) 67.9 37.0-80.0 % Lymphocytes (%) (Auto) 25.0 10.0-50.0 % Monocytes (%) (Auto) 5.5 0.0-12.0 % Eosinophils (%) (Auto) 1.0 0.0-7.0 % Basophils (%) (Auto) 0.6 0.0-2.0 % Neutrophils # (Auto) 5.5 1.6-8.6 10 ^3/uL Lymphocytes # (Auto) 2.0 0.4-5.4 10 ^3/uL Monocytes # (Auto) 0.4 0-1.3 10 ^3/uL Eosinophils # (Auto) 0.1 0-0.8 10 ^3/uL Basophils # (Auto) 0.1 0-0.2 10 ^3/uL Nucleated Red Blood Cells 0.2 % Sodium Level 133 L 136-145 mmol/L Potassium Level 4.2 3.5-5.1 mmol/L Chloride Level 101 98-107 mmol/L Carbon Dioxide Level 24 20-31 mmol/L Anion Gap 8 5-15 Blood Urea Nitrogen 14 9-23 mg/dL Creatinine 0.69 0.550-1.02 mg/dL Glomerular Filtration Rate Calc 90 >90 mL/min BUN/Creatinine Ratio 20.3 H 10.0-20.0 Serum Glucose 114 H 74-106 mg/dL Calcium Level 9.8 8.7-10.4 mg/dL Total Bilirubin 0.4 0.2-1.0 mg/dL Aspartate Amino Transferase (AST) 16 13-40 U/L Alanine Aminotransferase (ALT) 14 7-40 U/L Alkaline Phosphatase 91 46-116 U/L Total Protein 7.7 5.7-8.2 g/dL Albumin 4.4 3.2-4.8 g/dL Lipase 40 12-53 U/L Current Medications Medications (Trade) Dose Ordered Sig/Nupur Route Start Time Stop Time Status Last Admin Acetaminophen/ Hydrocodone Bitart ([place] 5/325MG Tab) 1 tab ONCE ONCE PO 06/07/25 11:15 06/07/25 11:16 DC 06/07/25 11:28 [place] [address] Ph: [phone] DIAGNOSTIC IMAGING Diagnostic Imaging Report : [id number] Signed PATIENT: ANIA HAMEED ACCT: [id number] UNIT: [id number] : 1950 LOC: ER ROOM / BED: / AGE / SEX: 75 / F ADM STATUS: REG ER SERVICE 1222 ORDERING PHYSICIAN: RACHELL MARIE MD PROCEDURE(s): ABPLIV - CT AB PEL WITH IV CON ONLY REASON: abdominal pain ORDER NUMBER(s): [id number], ACCESSION NUMBER(s): [id number] EXAM: CT CT AB PEL WITH IV CON ONLY History: abdominal pain Comparison Study: None TECHNIQUE: Multidetector CT of the abdomen pelvis with IV contrast. Axial, coronal and sagittal multiplanar reformats were obtained from the axial data set by the technologist. Radiation Dose Information: CT Dose: CTDI volume is 14.11 mGy. Dose-length product is 779.74 mGy*cm FINDINGS: Bibasilar atelectasis. 1 mm right middle lobe solid nodule overlying the fissure which may represent a fissural node Partially visualized heart is unremarkable. Liver, spleen, pancreas and right adrenal gland are unremarkable. 2.4 x 2.1 cm left adrenal mass measuring up to 90 Hounsfield units. Right renal scarring. Otherwise, kidneys, ureters and urinary bladder unremarkable. Uterus and adnexa unremarkable. Stomach is unremarkable. Small bowel loops unremarkable. Status post appendectomy. Moderate to large amount of fecal material within the colon. Sigmoid diverticulosis without diverticulitis. No evidence of intraperitoneal free air or free fluid. No evidence of aortic aneurysm or dissection. [id number] atherosclerotic calcification of the aorta and bilateral iliacs. No significant lymphadenopathy. Soft tissues are unremarkable. No evidence of acute osseous abnormalities. Calcified injection granuloma of the right gluteal region subcutaneous fat. IMPRESSION: No evidence of Acute abdominopelvic abnormalities. 2.3 x 2.1 cm left adrenal mass. Moderate to large amount of fecal material within the colon. ATED BY: RACHELLE COBURN DO DICTATED DATE/TIME: 06/07/251400 SIGNED BY: RACHELLE COBURN DO SIGNED DATE/TIME: 06/07/251400 CC: Time of 1ST Reevaluation: 11:15 Reevaluation 1ST: Unchanged Patient Education/Counseling: Diagnosis, Treatment, Prognosis Family Education/Counseling: No Family Present SEPSIS Sepsis Screen Date sepsis recognized/suspect: Jun 07, 2025 Time Sepsis recognized/suspect: 1026 Recent Procedure: No On Antibiotic Therapy: No Respiratory Rate >20: No Heart Rate >90: No Temp<36 C (96.8 F) or >38.3 C: No SBP <90 or MAP <65 mmHG: No New Acute Mental Status Change: No Is the patient on CPAP, BIPAP,: No Physician Orders Electrocardigram (06/07/25 10:28) Urinalysis (06/07/25 11:03) Chest Portable (06/07/25 11:03) Electrocardigram (06/07/25 12:03) Electrocardigram (06/07/25 14:03) Ct Ab Pel With Iv Con Only (06/07/25 12:22) Vital Signs Date Time Temp Pulse Resp B/P (MAP) Pulse Ox O2 Delivery O2 Flow Rate FiO2 06/07/25 11:59 97.4 65 16 146/80 (102) 99 97.4 06/07/25 10:32 67 06/07/25 10:24 97.9 96 68 144/82 17 97.9 Laboratory Tests Test 06/07/25 11:33 White Blood Count 8.1 10^3/uL (4.4-10.8) Medications Medications Dose Ordered Sig/Nupur Route Start Time Stop Time Status Last Admin Dose Admin Acetaminophen/ Hydrocodone Bitart 1 tab ONCE ONCE PO 06/07/25 11:15 06/07/25 11:16 DC 06/07/25 11:28 Departure 1 Departure Time of Disposition: 14:49 Impression: Primary Impression: Adrenal mass Additional Impressions: Constipation Pulmonary nodule Disposition: 01 HOME / SELF CARE / HOMELESS Condition: Stable Additional Instructions: Additional instructions: Please read all instructions provided in this packet carefully. You MUST follow-up with your primary care/family doctor in 1 to 2 days. If you are unable to see your primary care/family doctor, please return to our emergency room for re-assessment and re-evaluation in 1 to 2 days. Return to the emergency room here in our facility or to the nearest ER [facility] if your symptoms change or worsen. CONSULTATIONS: you MUST Follow-up for consultation as soon as possible with: -gastroenterology in 1-2 days. Please call for appointment. You MUST call the consultants office yourself to make an appointment. You may need to arrange that through your insurance and/or your primary/family doctor. If you are unable to see the reimbursement consultant in 1 to 2 days, you must return to our emergency room (or any other ER of your choice) for re-assessment and re-evalu ation. Adequate fluid hydration. Although you have been discharged from the Emergency Department, this does not mean that you have a "clean bill of health". No definitive diagnosis for your symptoms has been made today. It is possible that you are in the process of developing a serious illness. This is why you must return to the ED without fail if any new or worsening symptoms develop. Below is a copy of your radiological report for follow up: [facility] [id number] [place] [address] Ph: [phone] DIAGNOSTIC IMAGING Diagnostic Imaging Report : [id number] Signed PATIENT: ANIA HAMEED ACCT: [id number] UNIT: [id number] : 1950 LOC: ER ROOM / BED: / AGE / SEX: 75 / F ADM STATUS: REG ER SERVICE 1222 ORDERING PHYSICIAN: RACHELL MARIE MD PROCEDURE(s): ABPLIV - CT AB PEL WITH IV CON ONLY REASON: abdominal pain ORDER NUMBER(s): [id number], ACCESSION NUMBER(s): [id number] EXAM: CT CT AB PEL WITH IV CON ONLY History: abdominal pain Comparison Study: None TECHNIQUE: Multidetector CT of the abdomen pelvis with IV contrast. Axial, coronal and sagittal multiplanar reformats were obtained from the axial data set by the technologist. Radiation Dose Information: CT Dose: CTDI volume is 14.11 mGy. Dose-length product is 779.74 mGy*cm FINDINGS: Bibasilar atelectasis. 1 mm right middle lobe solid nodule overlying the fissure which may represent a fissural node Partially visualized heart is unremarkable. Liver, spleen, pancreas and right adrenal gland are unremarkable. 2.4 x 2.1 cm left adrenal mass measuring up to 90 Hounsfield units. Right renal scarring. Otherwise, kidneys, ureters and urinary bladder unremarkable. Uterus and adnexa unremarkable. Stomach is unremarkable. Small bowel loops unremarkable. Status post appendectomy. Moderate to large amount of fecal material within the colon. Sigmoid diverticulosis without diverticulitis. No evidence of intraperitoneal free air or free fluid. No evidence of aortic aneurysm or dissection. [id number] atherosclerotic calcification of the aorta and bilateral iliacs. No significant lymphadenopathy. Soft tissues are unremarkable. No evidence of acute osseous abnormalities. Calcified injection granuloma of the right gluteal region subcutaneous fat. IMPRESSION: No evidence of Acute abdominopelvic abnormalities. 2.3 x 2.1 cm left adrenal mass. Moderate to large amount of fecal material within the colon. ATED BY: RACHELLE COBURN DO DICTATED DATE/TIME: 06/07/25 140 SIGNED BY: RACHELLE COBURN DO SIGNED DATE/TIME: 06/07/25 1401 CC: Discharged With: Self Critical Care Note Critical Care Time?: No Stability Stability form required: No I personally scribed for RACHELL MARIE MD ([facility]) on 06/07/25 at 11:16. Electronically submitted by Jackie Blake ([facility]). I personally scribed for RACHELL MARIE MD ([facility]) on 06/07/25 at 14:29. Electronically submitted by Jackie Blake ([facility]). RACHELL MARIE MD Jun 07, 2025 11:16 MALENA IVERSON DO Jun 07, 2025 14:52
[2025-06-07] MEDS: HYDROcodone-ACET 5/325MG TAB PO ONE (11:28)
[2025-06-07 11:58] LABS: Hematocrit 42.5 % (36.0-46.0); Hemoglobin 14.4 g/dL (12.2-16.2); Mean Corpuscular Hemoglobin 31.1 pg (28.0-32.0); Mean Corpuscular Volume 92.0 fL (80.0-100.0); Nucleated Red Blood Cells % 0.2 %
--- NOTE | 2025-06-07 12:05 | DVH ---
CLINICAL INFORMATION: Right flank pain. TECHNIQUE: Single AP portable chest radiograph was obtained. COMPARISON: XY CHEST PORTABLE on DOS: 05/05/24, XY CHEST PORTABLE on DOS: 06/09/23, CHEST PORTABLE on DOS: 09/21/21 FINDINGS: Lungs: Mild elevation of the right hemidiaphragm. Lungs are clear. Cardiac: Heart size is within normal limits. Pulmonary vasculature: Unremarkable. Mediastinum/harinder: Moderate atherosclerotic calcification of the aortic arch. Bones: No acute osseous abnormality identified. Other: No other significant findings. IMPRESSION: No evidence of acute disease in the chest.
[2025-06-07 12:13] LABS: Alanine Aminotransferase 14 U/L (7-40); Albumin 4.4 g/dL (3.2-4.8); Alkaline Phosphatase 91 U/L (46-116); Anion Gap 8 (5-15); BUN/Creatinine Ratio 20.3 (10.0-20.0); Bilirubin, Total 0.4 mg/dL (0.2-1.0); Blood Urea Nitrogen 14 mg/dL (9-23); Calcium 9.8 mg/dL (8.7-10.4); Carbon Dioxide 24 mmol/L (20-31); Chloride 101 mmol/L (98-107); Lipase 40 U/L (12-53); Potassium 4.2 mmol/L (3.5-5.1); Total Protein 7.7 g/dL (5.7-8.2)
[2025-06-07 12:17] LABS: Glucose 114 mg/dL (74-106); Sodium 133 mmol/L (136-145)
[2025-06-07] MEDS: IOHEXOL 300 MG/ML 100ML BOTTLE IJ ONE (13:50)
--- NOTE | 2025-06-07 14:04 | DVH ---
EXAM: CT CT AB PEL WITH IV CON ONLY History: abdominal pain Comparison Study: None TECHNIQUE: Multidetector CT of the abdomen pelvis with IV contrast. Axial, coronal and sagittal multiplanar reformats were obtained from the axial data set by the technologist. Radiation Dose Information: CT Dose: CTDI volume is 14.11 mGy. Dose-length product is 779.74 mGy*cm FINDINGS: Bibasilar atelectasis. 1 mm right middle lobe solid nodule overlying the fissure which may represent a fissural node Partially visualized heart is unremarkable. Liver, spleen, pancreas and right adrenal gland are unremarkable. 2.4 x 2.1 cm left adrenal mass measuring up to 90 Hounsfield units. Right renal scarring. Otherwise, kidneys, ureters and urinary bladder unremarkable. Uterus and adnexa unremarkable. Stomach is unremarkable. Small bowel loops unremarkable. Status post appendectomy. Moderate to large amount of fecal material within the colon. Sigmoid diverticulosis without diverticulitis. No evidence of intraperitoneal free air or free fluid. No evidence of aortic aneurysm or dissection. [id number] atherosclerotic calcification of the aorta and bilateral iliacs. No significant lymphadenopathy. Soft tissues are unremarkable. No evidence of acute osseous abnormalities. Calcified injection granuloma of the right gluteal region subcutaneous fat. IMPRESSION: No evidence of Acute abdominopelvic abnormalities. 2.3 x 2.1 cm left adrenal mass. Moderate to large amount of fecal material within the colon.
[2025-06-07 15:38] VITALS: BP 132/67; PULSE 84; RESP 18; TEMP 97.6; O2SAT 98
--- NOTE | 2025-06-08 21:03 | ECG ---
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
== END 2025-06-07 15:49 | disposition home or self-care (01) ==
LOC: ER 10:06
DX: E27.9 Disorder of adrenal gland, unspecified (principal); K59.00 Constipation, unspecified; R91.1 Solitary pulmonary nodule; E11.9 Type 2 diabetes mellitus without complications; I10 Essential (primary) hypertension; Z79.899 Other long term (current) drug therapy; Z90.49 Acquired absence of other specified parts of digestive tract
CPT/HCPCS: 36415; 71045; 74177; 80053; 83690; 84484; 85025; 93005; 99284; Q9967